=== PATIENT | female | born 2000 | race Two or more races ===

== ENCOUNTER → 2023-11-30 | Outpatient (REF) | payer OTHER ==
[2023-11-30 13:11] LABS: ALBUMIN 4.3 G/DL (3.2-5.2); ALKALINE PHOSPHATASE 76 U/L (46-116); ALT/SGPT 15 U/L (7.0-40); AST/SGOT 15 U/L (<34); BASO % 0.4 % (0.0-1.0); BILIRUBIN,TOTAL 0.5 MG/DL (0.3-1.2); BLOOD UREA NITROGEN 14 MG/DL (9-23); CALCIUM LEVEL 9.9 MG/DL (8.5-10.1); CARBON DIOXIDE LEVEL 27 MMOL/L (20-31); CHLORIDE LEVEL 108 MMOL/L (98-107); CHOLESTEROL LEVEL 162 MG/DL (<200); CHOLESTEROL RISK RATIO 2.52 (<5); CREATININE FOR GFR 0.77 MG/DL (0.55-1.30); EOS # 0.3 10^3/uL (0.0-0.5); EOS % 3.1 % (0.0-3.0); GLOMERULAR FILTRATION RATE > 60.0 (>60); GLUCOSE, FASTING 88 MG/DL (60-100); HDL CHOLESTEROL 64.1 MG/DL (>40); HEMATOCRIT 41.9 % (36.0-47.0); HEMOGLOBIN 14.2 g/dl (12.0-15.5); LDL CHOLESTEROL 89.7 MG/DL (<100); LYMPH # 2.7 10^3/uL (1.5-5.0); LYMPH % 25.1 % (24.0-44.0); MEAN CORPUSCULAR HEMOGLOBIN 32.6 pg (27.0-33.0); MEAN CORPUSCULAR HGB CONC 33.9 g/dl (32.0-36.5); MEAN CORPUSCULAR VOLUME 96.3 fl (80.0-96.0); MONO # 1.2 10^3/uL (0.0-0.8); MONO % 10.8 % (2.0-8.0); NEUTROPHILS # 6.5 10^3/uL (1.5-8.5); NEUTROPHILS % 60.2 % (36.0-66.0); NON-HDL-C 97.9 MG/DL; PLATELET COUNT, AUTOMATED 297 10^3/uL (150-450); POTASSIUM SERUM 4.8 MMOL/L (3.5-5.1); RED BLOOD COUNT 4.35 10^6/uL (4.00-5.40); SODIUM LEVEL 143 MMOL/L (136-145); TOTAL PROTEIN 7.4 G/DL (5.7-8.2); TRIGLYCERIDES LEVEL 41 MG/DL (<150); WHITE BLOOD COUNT 10.8 10^3/uL (4.0-10.0)
[2023-11-30 13:15] LABS: THYROID STIMULATING HORMONE 1.537 uIU/ML (0.55-4.78); TOTAL 25(OH) VITAMIN D 47.5 NG/ML (20.0-100.0)
[2023-11-30 13:28] LABS: HEMOGLOBIN A1c 4.8 % (4.0-6.0)
== END ==
LOC: M LAB REF 11:56
PROVIDERS: ATTEND Nurse Practitioner Family
DX: Z13.1 Encounter for screening for diabetes mellitus (principal); Z13.29 Encounter for screening for other suspected endocrine disorder; E55.9 Vitamin D deficiency, unspecified; Z13.220 Encounter for screening for lipoid disorders

== ENCOUNTER → 2024-04-03 | Outpatient (REF) | payer OTHER ==
[2024-04-03 15:06] LABS: Trichomonas vaginalis (AMP) NOT DETECTED (NEGATIVE)
[2024-04-03 15:29] LABS: GC DNA AMPLIFICATION NEGATIVE (NEGATIVE)
== END ==
LOC: M LAB REF 13:16
PROVIDERS: ATTEND Nurse Practitioner Family
DX: R39.9 Unspecified symptoms and signs involving the genitourinary system (principal)

== ENCOUNTER → 2024-12-20 | Outpatient (REF) | payer OTHER, MEDICAID | LOC: M SFHCWAGY 13:06 | PROVIDERS: ATTEND Nurse Practitioner Family | DX: Z12.4 Encounter for screening for malignant neoplasm of cervix (principal) ==

== ENCOUNTER → 2025-01-11 | Outpatient (CLI) | payer OTHER | LOC: M WHC 14:45 | PROVIDERS: ATTEND Nurse Practitioner Family | DX: N92.6 Irregular menstruation, unspecified (principal) ==

== ENCOUNTER → 2025-01-25 | Outpatient (RCR) | LOC: EDUNIT# 01-15 16:08 → M EMPSKH 01-15 16:08 | PROVIDERS: ATTEND Family Medicine | DX: Z20.828 Contact with and (suspected) exposure to other viral communicable diseases (principal) ==

== ENCOUNTER → 2025-02-28 | Outpatient (CLI) | payer OTHER ==
[2025-02-28 16:10] LABS: FREE T4 1.63 NG/DL (0.89-1.76); PROLACTIN 6.02 NG/ML
[2025-02-28 16:12] LABS: ESTIMATED AVERAGE GLUCOSE 97.0 MG/DL (60-110)
[2025-03-01 10:12] LABS: DEHYDROEPIANDROSTERONE SULFATE 388 mcg/dL (14-349)
== END ==
LOC: M PLALAB 13:34
PROVIDERS: ATTEND Nurse Practitioner Family
DX: N92.6 Irregular menstruation, unspecified (principal)